=== PATIENT | female | born 1970 | race Hispanic/Latino ===

== ENCOUNTER 2016-08-04 10:08 | Outpatient (CLI) | payer OTHER ==
--- NOTE | 2016-08-04 11:19 | Ultrasound Report ---
Complete abdominal ultrasound: Images of the liver are unremarkable. Pancreas is slightly echogenic suggesting fatty infiltration. The spleen is unremarkable. The gallbladder is filled with multiple echodensities and stone or shadowing. The gallbladder wall was not thickened. No pericholecystic fluid identified. The CBD diameter is 7.2 mm. The right kidney has a length of 12.3 cm and the left kidney measures 12.7 cm. Both kidneys appeared echogenically unremarkable. The transverse diameter of the proximal abdominal aorta is 2.3 cm, mid aorta 2.1 cm, and the distal aorta 1.9 cm. Impressions: 1. Cholelithiasis. 2. Fatty pancreas.
== END 2016-08-04 10:09 | disposition home or self-care (01) ==
LOC: SPVWC 10:08
PROVIDERS: ATTEND Internal Medicine
DX: K80.20 Calculus of gallbladder without cholecystitis without obstruction (principal); K86.89 Other specified diseases of pancreas
CPT/HCPCS: 76700